=== PATIENT | male | born 1945 | race Caucasian/White ===

== ENCOUNTER 2016-11-16 12:10 | Emergency (ER) | payer OTHER | END 2016-11-16 13:35 | disposition home or self-care (01) | LOC: D.ER 12:10 | DX: S83.92XA Sprain of unspecified site of left knee, initial encounter (principal); W13.3XXA Fall through floor, initial encounter; Y93.89 Activity, other specified; Y92.019 Unspecified place in single-family (private) house as the place of occurrence of the external cause; F17.200 Nicotine dependence, unspecified, uncomplicated ==

== ENCOUNTER 2016-12-12 04:25 | Emergency (ER) | payer OTHER ==
[2012-08-24 14:44] VITALS: BMI 25.8
[~2016-12-12 04:25] MED LIST: CELEXA20 MG PO; COUMADIN5 MG PO; COUMADIN6 MG PO; DESERYL100 MG PO; DULCOLAX10 MG/SUPP RC; FLOMAX0.4 MG; LOVENOX40 MG/0.4 SQ; MIRALAX17 GM PO; NORCO 10/325 TA1 TA1 PO; ONDANSETRON4 MG/2 M3 IV; OXYCODONE HCL10 MG; SENOKOT-S TABLE1 TAB PO; TUMS500 MG PO; UNKOWN; XANAX0.25 MG PO
== END 2016-12-12 06:54 | disposition home or self-care (01) ==
LOC: D.ER 04:25
DX: S32.19XA Other fracture of sacrum, initial encounter for closed fracture (principal); X58.XXXA Exposure to other specified factors, initial encounter; Y93.89 Activity, other specified; Y92.029 Unspecified place in mobile home as the place of occurrence of the external cause

== ENCOUNTER 2017-07-07 11:28 | Emergency (ER) | payer OTHER ==
[2012-08-24 14:44] VITALS: BMI 25.8
[2017-07-07 13:23] LABS: INR 1.07 (0.85-1.17); PROTIME 13.5 SECONDS (11.6-15.0)
[2017-07-07 13:25] LABS: ALBUMIN 3.3 g/dL (3.4-5.0); ALKALINE PHOSPHATASE 74 U/L (46-116); ALT (SGPT) 26 U/L (10-68); CALC OSMOLALITY 279 mosm/kg (275-300); CALCIUM 8.7 mg/dL (8.5-10.1); CARBON DIOXIDE 27.3 mmol/L (21.0-32.0); CHLORIDE - SERUM 105 mmol/L (98-107); CREATININE - SERUM 1.3 mg/dL (0.6-1.3); GLUCOSE 76 mg/dL (74-106); POTASSIUM - SERUM 4.6 mmol/L (3.5-5.1); PROTEIN - SERUM 6.9 g/dL (6.4-8.2); SODIUM 140 mmol/L (136-145); UREA NITROGEN 19 mg/dL (7-18); eGFR NON AFRICAN AMERICAN 58 mL/min (90-120)
[2017-07-07 13:32] LABS: BASOPHILS 1.4 % (0-2); EOSINOPHILS 8.9 % (0-7); HEMATOCRIT 33.2 % (42.0-54.0); HEMOGLOBIN 11.1 g/dL (13.5-17.5); IMMATURE GRANULOCYTES 0.2 % (0-5); LYMPHOCYTES 32.7 % (15-50); MCH 30.3 pg (26.0-34.0); MCHC 33.4 g/dL (31.0-37.0); MCV 90.7 fL (80.0-100.0); MEAN PLATELET VOLUME 9.8 fL (7.4-10.4); MONOCYTES 12.2 % (2-11); NEUTROPHILS 44.6 % (40-80); PLATELET COUNT 246 10x3/uL (130-400); RBC 3.66 10x6/uL (4.20-6.10); RDW 12.8 % (11.5-14.5); WBC 8.5 10x3/uL (4.8-10.8)
[2017-07-07 13:45] LABS: CREATINE KINASE 312 UL (21-232)
[2017-07-07 13:46] LABS: CKMB 6.5 U/L (0.0-3.6)
== END 2017-07-07 13:29 | disposition home or self-care (01) ==
LOC: D.ER 11:28
PROVIDERS: Nurse Practitioner Family
DX: S02.2XXA Fracture of nasal bones, initial encounter for closed fracture (principal); Y04.2XXA Assault by strike against or bumped into by another person, initial encounter; Y93.89 Activity, other specified; Y92.019 Unspecified place in single-family (private) house as the place of occurrence of the external cause; S00.83XA Contusion of other part of head, initial encounter

== ENCOUNTER 2018-01-30 20:35 | Emergency (ER) | payer OTHER, MEDICARE ==
[~2018-01-30] VITALS: Ht 160 cm; Wt 68.2 kg
[2018-01-30 20:59] VITALS: Ht 160 cm; Wt 68.2 kg
[2018-01-30] MEDS ORDERED: MUPIROCIN22 GM TOPICAL (23:20)
[2018-01-30 23:30] VITALS: BP 112/69
== END 2018-01-30 23:30 | disposition home or self-care (01) ==
LOC: D.ER 20:35
DX: S51.812A Laceration without foreign body of left forearm, initial encounter (principal); W18.31XA Fall on same level due to stepping on an object, initial encounter; Y93.89 Activity, other specified; Y92.019 Unspecified place in single-family (private) house as the place of occurrence of the external cause; S50.812A Abrasion of left forearm, initial encounter; F17.200 Nicotine dependence, unspecified, uncomplicated

== ENCOUNTER 2018-02-13 12:02 | Emergency (ER) | payer OTHER ==
[~2018-02-13 12:02] MED LIST changes: +MUPIROCIN22 GM TOPICAL
[2018-02-13 12:36] VITALS: BP 125/70; Ht 160 cm
== END 2018-02-13 14:04 | disposition home or self-care (01) ==
LOC: D.ER 12:02
DX: S51.012D Laceration without foreign body of left elbow, subsequent encounter (principal); X58.XXXD Exposure to other specified factors, subsequent encounter; Z48.02 Encounter for removal of sutures

== ENCOUNTER 2018-07-05 11:20 | Emergency (ER) | payer MEDICARE ==
[2018-07-05 11:51] VITALS: BMI 27.5
[2018-07-05 13:48] VITALS: BP 132/76
== END 2018-07-05 13:49 | disposition home or self-care (01) ==
LOC: D.ER 11:20
DX: M25.551 Pain in right hip (principal); W18.31XA Fall on same level due to stepping on an object, initial encounter; Y93.89 Activity, other specified; Y92.019 Unspecified place in single-family (private) house as the place of occurrence of the external cause

== ENCOUNTER 2018-07-18 10:22 | Emergency (ER) | payer OTHER, MEDICARE ==
[~2018-07-18] VITALS: Ht 160 cm; Wt 72.7 kg
[2018-07-18 10:29] VITALS: Ht 160 cm; Wt 72.7 kg
[2018-07-18] MEDS ORDERED: ZANAFLEX2 M1 PO (11:49)
[2018-07-18 11:56] VITALS: BP 126/70
== END 2018-07-18 11:58 | disposition home or self-care (01) ==
LOC: D.ER 10:22
DX: M54.2 Cervicalgia (principal); V43.52XA Car driver injured in collision with other type car in traffic accident, initial encounter; Y93.89 Activity, other specified; Y92.410 Unspecified street and highway as the place of occurrence of the external cause

== ENCOUNTER 2019-10-15 07:21 | Inpatient (IN) | payer OTHER ==
[~2019-10-15] VITALS: Ht 162.6 cm; Wt 68.5 kg
[~2019-10-15 07:21] MED LIST changes: +ZANAFLEX2 M1 PO
[2019-10-15 08:19] LABS: BILIRUBIN NEGATIVE (NEGATIVE); GLUCOSE NEGATIVE (NEGATIVE); KETONE NEGATIVE (NEGATIVE); NITRITE NEGATIVE (NEGATIVE); UROBILINOGEN NORMAL (NORMAL)
[2019-10-15 08:20] LABS: BACTERIA FEW /hpf (NEGATIVE); EPITHELIAL CELLS 0-5 /hpf (0-5); WHITE CELLS - URINE 0-5 /hpf (NEGATIVE)
[2019-10-15 08:37] LABS: BASOPHILS 0.1 % (0-2); CALC OSMOLALITY 278 mosm/kg (275-300); CALCIUM 8.5 mg/dL (8.5-10.1); CARBON DIOXIDE 32.1 mmol/L (21.0-32.0); CHLORIDE - SERUM 101 mmol/L (98-107); CREATININE - SERUM 1.1 mg/dL (0.6-1.3); EOSINOPHILS 0.9 % (0-7); GLUCOSE 100 mg/dL (74-106); HEMATOCRIT 37.2 % (42.0-54.0); HEMOGLOBIN 12.3 g/dL (13.5-17.5); IMMATURE GRANULOCYTES 0.2 % (0-5); LYMPHOCYTES 8.3 % (15-50); MCH 30.6 pg (26.0-34.0); MCHC 33.1 g/dL (31.0-37.0); MCV 92.5 fL (80.0-100.0); MEAN PLATELET VOLUME 9.1 fL (7.4-10.4); MONOCYTES 4.1 % (2-11); NEUTROPHILS 86.4 % (40-80); PLATELET COUNT 277 10x3/uL (130-400); POTASSIUM - SERUM 4.4 mmol/L (3.5-5.1); RBC 4.02 10x6/uL (4.20-6.10); RDW 13.9 % (11.5-14.5); SODIUM 140 mmol/L (136-145); UREA NITROGEN 12 mg/dL (7-18); WBC 14.8 10x3/uL (4.8-10.8); eGFR NON AFRICAN AMERICAN 70 mL/min (90-120)
[2019-10-15 08:53] LABS: ALBUMIN 3.3 g/dL (3.4-5.0); ALKALINE PHOSPHATASE 96 U/L (30-120); ALT (SGPT) 22 U/L (10-68); CKMB 1.4 U/L (0.0-3.6); CREATINE KINASE 121 UL (21-232); LIPASE 61 U/L (73-393); MAGNESIUM - SERUM 1.9 mg/dL (1.8-2.4); PROTEIN - SERUM 6.8 g/dL (6.4-8.2)
[2019-10-15 08:54] LABS: TROPONIN-I < 0.017 ng/mL (0.000-0.060)
[2019-10-15 09:06] VITALS: BP 143/72
[2019-10-15 13:18] LABS: INR 0.94 (0.85-1.17); PROTIME 12.6 SECONDS (11.6-15.0)
[2019-10-15 18:26] VITALS: BP 162/82
--- NOTE | 2019-10-15 19:19 | NUR ---
RECEIVED CALL FROM PT'S DAUGHTER. UPDATED LIZ THAT THE RESULTS OF PT COVID TEST WAS NEGATIVE. LIZ CAN BE REACHED @ [phone]
--- NOTE | 2019-10-15 19:45 | NUR ---
PATIENT IS SLEEPING IN BED. HE IS ALERT AND ORIENTED. HIS COVID TEST IS NEGATIVE. HE IS ON 2 LITERS NASAL CANNULA. WE WILL CONTINUE TO MONITOR HIS RESPIRATORY STATUS.
[2019-10-15 20:45] VITALS: BP 159/78
[2019-10-16 00:45] VITALS: BP 128/55
--- NOTE | 2019-10-16 03:21 | NUR ---
PATIENT IS SLEEPING IN BED. HE IS ON 2 LITERS NASAL CANNULA. HE IS ON IV FLUIDS. HIS COVID IS NEGATIVE. HE HAS NO COMPLAINTS AT THIS TIME. WE WILL CONTINUE TO MONITOR HIS RESPIRATORY STATUS.
[2019-10-16 04:45] VITALS: BP 133/67
[2019-10-16 06:06] LABS: BASOPHILS 0.2 % (0-2); EOSINOPHILS 1.7 % (0-7); HEMATOCRIT 37.1 % (42.0-54.0); HEMOGLOBIN 12.1 g/dL (13.5-17.5); IMMATURE GRANULOCYTES 0.2 % (0-5); MCHC 32.6 g/dL (31.0-37.0); MCV 92.1 fL (80.0-100.0); MEAN PLATELET VOLUME 8.9 fL (7.4-10.4); MONOCYTES 11.3 % (2-11); NEUTROPHILS 70.6 % (40-80); PLATELET COUNT 243 10x3/uL (130-400); RBC 4.03 10x6/uL (4.20-6.10); RDW 13.9 % (11.5-14.5); WBC 11.6 10x3/uL (4.8-10.8)
[2019-10-16 06:10] LABS: INR 1.12 (0.85-1.17); PROTIME 14.3 SECONDS (11.6-15.0)
[2019-10-16 06:33] LABS: ALBUMIN 2.9 g/dL (3.4-5.0); ALKALINE PHOSPHATASE 82 U/L (30-120); BILIRUBIN - TOTAL 0.49 mg/dL (0.2-1.3); CALC OSMOLALITY 277 mosm/kg (275-300); CALCIUM 8.7 mg/dL (8.5-10.1); CARBON DIOXIDE 32.6 mmol/L (21.0-32.0); CHLORIDE - SERUM 105 mmol/L (98-107); GLUCOSE 92 mg/dL (74-106); PROTEIN - SERUM 6.8 g/dL (6.4-8.2); SODIUM 140 mmol/L (136-145); UREA NITROGEN 10 mg/dL (7-18); eGFR NON AFRICAN AMERICAN 78 mL/min (90-120)
[2019-10-16 06:35] LABS: ALT (SGPT) 16 U/L (10-68); POTASSIUM - SERUM 3.6 mmol/L (3.5-5.1)
[2019-10-16 09:00] VITALS: BP 169/76
[2019-10-16 13:45] VITALS: Ht 162.6 cm; Wt 68.5 kg
[2019-10-16] MEDS ORDERED: BUSPAR5 MG PO (18:04)
[2019-10-16] MEDS ORDERED: EFFEXOR XR75 MG PO (18:07)
[2019-10-16] MEDS ORDERED: COREG6.25 MG PO (18:08)
[2019-10-16] MEDS ORDERED: REMERON15 MG PO (18:09)
[2019-10-16] MEDS ORDERED: LISINOPRIL5 MG PO (18:11)
[2019-10-16] MEDS ORDERED: OMEPRAZOLE20 M1 PO (18:13)
[2019-10-16] MEDS ORDERED: GABAPENTIN300 MG PO (18:14)
[2019-10-16] MEDS ORDERED: ZOCOR20 MG PO (18:16)
--- NOTE | 2019-10-16 19:05 | NUR ---
REPORT RECEIVED, PT CARE ASSUMED. INTRODUCED SELF AND WROTE NAME ON BOARD. PT LYING IN BED, WATCHING TV, AAOX4. DENIES ANY NEEDS AT THIS TIME. BED IN LOWEST, SRX1, CALL LIGHT WITHIN REACH. WILL CTM.
[2019-10-17 05:46] LABS: INR 1.07 (0.85-1.17); PROTIME 13.8 SECONDS (11.6-15.0)
[2019-10-17 09:00] VITALS: BP 150/77
--- NOTE | 2019-10-17 11:39 | NUR ---
RCVD PT FROM [facility] VIA WHEELCHAIR AND HOSPITAL STAFF. RIGHT CHEST PORT PRESENT. V/S STABLE. NO CURRENT S/S OF DISTRESS, DENIES CURRENT NEEDS, WILL CONT TO [place].
[2019-10-17 12:04] VITALS: BP 139/96
[2019-10-17 15:48] VITALS: BP 153/95
[2019-10-17 20:00] VITALS: BP 167/90
[2019-10-18] VITALS: BP 117/80
[2019-10-18 04:00] VITALS: BP 102/67
--- NOTE | 2019-10-18 07:15 | NUR ---
RECEIVE BEDSIDE SHIFT REPORT. RESTING IN BED WITH EYES CLOSED. NO SIGNS OF DISTRESS. WILL CONTINUE PLAN OF CARE AND SAFETY PRECAUTIONS.
[2019-10-18 08:37] VITALS: BP 152/78
[2019-10-18 09:54] LABS: INR 0.93 (0.85-1.17); PROTIME 12.4 SECONDS (11.6-15.0)
[2019-10-18 12:00] VITALS: BP 137/91
--- NOTE | 2019-10-18 15:36 | MORECARE ---
CASE MANAGEMENT DISCHARGE SUMMARY PATIENT: MILADIS DYKES UNIT: [id number] ADM DATE: 10/15/19 AGE: 74 : 46 SEX: M ROOM/BED: D.2235 AUTHOR: CARMEN CEJA PHYSICIAN: REFERRING PHYSICIAN: NARCISO SYKES MD DATE OF SERVICE: 10/18/19 Discharge Plan Patient Name: MILADIS DYKES Facility: [facility]:[place] : 1945 Planned Disposition: Home Anticipated Discharge Date: Discharge Date: Expected LOS: Initial Reviewer: [email or web address] Initial Review Date: 10/18/2019 Generated: 10/18/19 4:36 pm Comments DCP- Discharge Planning Updated by [email or web address]: Beatrice Royal on 10/18/19 2:[address] Patient Name: MILADIS DYKES Admission Status: ER Accout number: [id number] Admission Date: 10-15-2019 : 1945 Admission Diagnosis: Attending: NARCISO SYKES Current LOS: 3 Anticipated DC Date: Planned Disposition: Home Primary Insurance: [employer] Discharge Planning Comments: CM met with patient at bedside after explaining CM role and obtaining verbal consent. CM discussed availability / needs of home health, REHAB and medical equipment. PATIENT DENIES ANY DISCHARGE NEEDS. HE STATES ANTICIPATES DC TO HOME TOMORRW. General Road Foreman: Beatrice Royal DCP- Discharge Planning Updated by [email or web address]: Emiliana Chaudhary on 10/15/19 12:[address] CM CALLED [address] HOTLINE FOR ADMISSION. CM SPOKE WITH LAURA WITH UPDATE. AUTHORIZATION NUMBER #[id number]. DCPIA - Discharge Planning Initial Assessment Updated by [email or web address]: Beatrice Royal on 10/18/19 3:35 pm * Is the patient Alert and Oriented? Yes * PCP ONEL * Pharmacy [facility] * Preadmission Environment Home with Family * ADLs Independent * Equipment None * Community resources currently utilized None * Additional services required to return to the preadmission environment? No * Can the patient safely return to the preadmission environment? Yes * Has this patient been hospitalized within the prior 30 days at any hospital? No Patient Name: MILADIS DYKES Page 30105 at 1536 All edits/amendments must be made on the electronic document DICTATION DATE: 10/18/191535 DOOR TO DOOR LEAD GENERATION: FANNY 10/18/191535 RPT#: [id number] DC DATE: STATUS: ADM IN [facility] [address] [place] [address] END OF REPORT
[2019-10-18 16:00] VITALS: BP 164/94
--- NOTE | 2019-10-18 18:00 | NUR ---
PATIENT COMPLAINS OF NECK PAIN AND HAS NO RELIEF WITH CURRENT PAIN MEDICATIONS. CALLED DR. SYKES AND HE ORDERED TIZANIDINE 4MG PO TID PRN FOR NECK PAIN/MUSCLE SPASMS. WILL CONTINUE TO MONITOR
[2019-10-18 20:55] VITALS: BP 162/89
[2019-10-19 01:48] VITALS: BP 133/82
--- NOTE | 2019-10-19 03:34 | NUR ---
I have reviewed this patient and I concur with the Shift Assessment completed by the Licensed Practical Nurse today this shift.
[2019-10-19 04:30] VITALS: BP 126/75
[2019-10-19 06:15] LABS: BASOPHILS 0.3 % (0-2); EOSINOPHILS 2.8 % (0-7); HEMATOCRIT 32.9 % (42.0-54.0); HEMOGLOBIN 10.7 g/dL (13.5-17.5); IMMATURE GRANULOCYTES 0.2 % (0-5); LYMPHOCYTES 23.2 % (15-50); MCH 29.6 pg (26.0-34.0); MCHC 32.5 g/dL (31.0-37.0); MCV 91.1 fL (80.0-100.0); MEAN PLATELET VOLUME 9.1 fL (7.4-10.4); MONOCYTES 15.1 % (2-11); NEUTROPHILS 58.4 % (40-80); PLATELET COUNT 247 10x3/uL (130-400); RBC 3.61 10x6/uL (4.20-6.10); RDW 13.5 % (11.5-14.5); WBC 8.8 10x3/uL (4.8-10.8)
[2019-10-19 06:23] LABS: INR 1.08 (0.85-1.17)
[2019-10-19 06:34] LABS: CALC OSMOLALITY 274 mosm/kg (275-300); CALCIUM 8.5 mg/dL (8.5-10.1); CHLORIDE - SERUM 104 mmol/L (98-107); CREATININE - SERUM 0.9 mg/dL (0.6-1.3); GLUCOSE 86 mg/dL (74-106); POTASSIUM - SERUM 3.6 mmol/L (3.5-5.1); SODIUM 138 mmol/L (136-145); UREA NITROGEN 13 mg/dL (7-18); eGFR NON AFRICAN AMERICAN 88 mL/min (90-120)
--- NOTE | 2019-10-19 07:05 | NUR ---
WALKNING ROUNDS COMPLETE, PT SITTING UP IN CHAIR, O2 IN USE PER NC, IV INFUSING WITHOUT DIFFICULTY, SITE CLEAR, PT DENIES ANY NEEDS AT THIS TIME, PT HAS CHRONIC PAIN IN BACK AND NECK, CALL LIGHT IN REACH, WILL CONTINUE TO MONITOR
[2019-10-19 08:09] VITALS: BP 172/96
--- NOTE | 2019-10-19 08:10 | NUR ---
GAVE PT MORNING MEDS, PT GOT SCHEDULED PAIN MEDS, NO OTHER NEEDS VOICED, WILL MONITOR
--- NOTE | 2019-10-19 11:12 | NUR ---
PT SITTING UP IN CHAIR, HUNG ANTIBIOTIC, SITE CLEAR, PT DENIES NEEDS AT THIS TIME, WILL MONITOR
--- NOTE | 2019-10-19 12:37 | NUR ---
GAVE PT NORCO 10MG PO FOR PAIN, RATES PAIN 7/10 IN BACK AND NECK, NO OTHER NEEDS VOICED
[2019-10-19 12:54] VITALS: BP 168/88
--- NOTE | 2019-10-19 13:31 | NUR ---
PT RATES PAIN 4/10, VOICES PAIN MEDS HELPED ALOT, WILL MONITOR
[2019-10-19] MEDS ORDERED: VIBRAMYCIN 100100 MG PO (13:51)
--- NOTE | 2019-10-19 15:41 | MORECARE ---
CASE MANAGEMENT DISCHARGE SUMMARY PATIENT: MILADIS DYKES UNIT: [id number] ADM DATE: 10/15/19 AGE: 74 : 46 SEX: M ROOM/BED: D.2235 AUTHOR: MARCIAL,DOC PHYSICIAN: REFERRING PHYSICIAN: NARCISO SYKES MD DATE OF SERVICE: 10/19/19 Discharge Plan Patient Name: MILADIS DYKES Facility: [facility]:[place] : 1945 Planned Disposition: Home Anticipated Discharge Date: Discharge Date: Expected LOS: Initial Reviewer: [email or web address] Initial Review Date: 10/18/2019 Generated: 10/19/19 4:41 pm Comments DCP- Discharge Planning Updated by [email or web address]: Astrid Coleman on 10/19/19 2:[address] SPOKE WITH YVONNE WITH [facility] AND LET HER KNOW THAT HE WAS BEING DISCHARGE NO NEEDS DCP- Discharge Planning Updated by [email or web address]: Beatrice Royal on 10/18/19 2:[address] Patient Name: MILADIS DYKES Admission Status: ER Accout number: [id number] Admission Date: 10-15-2019 : 1945 Admission Diagnosis: Attending: NARCISO SYKES Current LOS: 3 Anticipated DC Date: Planned Disposition: Home Primary Insurance: [employer] Discharge Planning Comments: CM met with patient at bedside after explaining CM role and obtaining verbal consent. CM discussed availability / needs of home health, REHAB and medical equipment. PATIENT DENIES ANY DISCHARGE NEEDS. HE STATES ANTICIPATES DC TO HOME TOMORRW. Diesel Truck Mechanic: Beatrice Royal DCP- Discharge Planning Updated by [email or web address]: Emiliana Chaudhary on 10/15/19 12:[address] CM CALLED [place] [facility] HOTLINE FOR ADMISSION. CM SPOKE WITH LAURA WITH UPDATE. AUTHORIZATION NUMBER #[id number]. DCPIA - Discharge Planning Initial Assessment Updated by [email or web address]: Beatrice Royal on 10/18/19 3:35 pm * Is the patient Alert and Oriented? Yes * PCP ONEL * Pharmacy [facility] * Preadmission Environment Home with Family * ADLs Independent * Equipment None * Community resources currently utilized None * Additional services required to return to the preadmission environment? No * Can the patient safely return to the preadmission environment? Yes * Has this patient been hospitalized within the prior 30 days at any hospital? No Last DP export: 10/18/19 2:37 p Patient Name: MILADIS DYKES Page 14910 at 1541 All edits/amendments must be made on the electronic document DICTATION DATE: 10/19/19 154 MANAGER COMPLETIONS: FANNY 10/19/19 1541 RPT#: [id number] DC DATE: STATUS: ADM IN [facility] [address] [place] [address] END OF REPORT
--- NOTE | 2019-10-19 16:48 | NUR ---
WENT OVER DISCHARGE INSTRUCTIONS WITH PT, VERBALIZED THAT ANTIBIOTIC WAS CALLED IN, HEPARINIZED PORT, REMOVED BERGER NEEDLE INTACT, ALL PERSONAL BELONGINGS RETURNED,
--- NOTE | 2019-10-21 09:02 | MORECARE ---
CASE MANAGEMENT DISCHARGE SUMMARY PATIENT: MILADIS DYKES UNIT: [id number] ADM DATE: 10/15/19 AGE: 74 : 46 SEX: M ROOM/BED: D.2235 AUTHOR: CARMEN CEJA PHYSICIAN: REFERRING PHYSICIAN: NARCISO SYKES MD DATE OF SERVICE: 10/21/19 Discharge Plan Patient Name: MILADIS DYKES Facility: [facility]:[place] : 1945 Planned Disposition: Home Anticipated Discharge Date: Discharge Date: 10/19/2019 Expected LOS: Initial Reviewer: [email or web address] Initial Review Date: 10/18/2019 Generated: 10/21/19 10:01 am Comments DCP- Discharge Planning Updated by [email or web address]: Astrid Coleman on 10/19/19 2:[address] SPOKE WITH YVONNE WITH [facility] AND LET HER KNOW THAT HE WAS BEING DISCHARGE NO NEEDS DCP- Discharge Planning Updated by [email or web address]: Beatrice Royal on 10/18/19 2:[address] Patient Name: MILADIS DYKES Admission Status: ER Accout number: [id number] Admission Date: 10-15-2019 : 1945 Admission Diagnosis: Attending: ANRCISO SYKES Current LOS: 3 Anticipated DC Date: Planned Disposition: Home Primary Insurance: [employer] Discharge Planning Comments: CM met with patient at bedside after explaining CM role and obtaining verbal consent. CM discussed availability / needs of home health, REHAB and medical equipment. PATIENT DENIES ANY DISCHARGE NEEDS. HE STATES ANTICIPATES DC TO HOME TOMORRW. Regional Driver: Beatrice Royal DCP- Discharge Planning Updated by [email or web address]: Emiliana Chaudhary on 10/15/19 12:[address] CM CALLED [place] [facility] HOTLINE FOR ADMISSION. CM SPOKE WITH LAURA WITH UPDATE. AUTHORIZATION NUMBER #[id number]. DCPIA - Discharge Planning Initial Assessment Updated by [email or web address]: Beatrice Royal on 10/18/19 3:35 pm * Is the patient Alert and Oriented? Yes * PCP ONEL * [facility] * Preadmission Environment Home with Family * ADLs Independent * Equipment None * Community resources currently utilized None * Additional services required to return to the preadmission environment? No * Can the patient safely return to the preadmission environment? Yes * Has this patient been hospitalized within the prior 30 days at any hospital? No Last DP export: 10/19/19 2:41 p Patient Name: MILADIS DYKES Page 38335 at 0902 All edits/amendments must be made on the electronic document DICTATION DATE: 10/21/19901 CASE MONITOR: FANNY 10/21/19901 RPT#: [id number] DC DATE:10/19/19 STATUS: DIS IN [facility] [address] [place] [address] END OF REPORT
== END 2019-10-19 17:13 | disposition home or self-care (01) | DRG 195 ==
LOC: D.ER 07:21 → D.MS 10:31 → D.M2 10:31 → D.MS 10-17 11:35
PROVIDERS: Family Medicine; ADMIT Family Medicine; ATTEND Family Medicine
DX: J18.9 Pneumonia, unspecified organism (principal); R09.02 Hypoxemia; I10 Essential (primary) hypertension

== ENCOUNTER 2020-07-20 05:12 | Emergency (ER) | payer OTHER ==
[~2020-07-20] VITALS: Ht 162.6 cm; Wt 75.0 kg
[~2020-07-20 05:12] MED LIST changes: +BACTRIM DS TAB1 EAC1 PO; +BUSPAR5 MG PO; +COREG12.5 MG PO; +COREG6.25 MG PO; +EFFEXOR XR75 MG PO; +GABAPENTIN300 MG PO; +LISINOPRIL10 MG PO; +LISINOPRIL5 MG PO; +OMEPRAZOLE20 M1 PO; +REMERON15 MG PO; +VIBRAMYCIN 100100 MG PO; +ZOCOR20 MG PO
[2020-07-20 05:13] VITALS: BP 150/68; Ht 162.6 cm; Wt 75.0 kg
[2020-07-20 05:38] LABS: HEMOGLOBIN 11.2 g/dL (13.5-17.5); MCH 30.1 pg (26.0-34.0); MCV 88.4 fL (80.0-100.0); MEAN PLATELET VOLUME 7.4 fL (7.4-10.4); RBC 3.73 10x6/uL (4.20-6.10); RDW 13.6 % (11.5-14.5); WBC 5.9 10x3/uL (4.8-10.8)
[2020-07-20 05:56] LABS: CALC OSMOLALITY 268 mosm/kg (275-300); CALCIUM 8.6 mg/dL (8.5-10.1); CARBON DIOXIDE 27.6 mmol/L (21.0-32.0); CHLORIDE - SERUM 97 mmol/L (98-107); CREATININE - SERUM 1.2 mg/dL (0.6-1.3); POTASSIUM - SERUM 4.6 mmol/L (3.5-5.1); SODIUM 134 mmol/L (136-145); UREA NITROGEN 22 mg/dL (7-18); eGFR NON AFRICAN AMERICAN 63 mL/min (90-120)
[2020-07-20 06:00] LABS: GLUCOSE 69 mg/dL (74-106)
[2020-07-20 06:04] LABS: PLATELET COUNT 171 10x3/uL (130-400)
[2020-07-20 06:10] LABS: ALBUMIN 3.5 g/dL (3.4-5.0); ALKALINE PHOSPHATASE 74 U/L (30-120); ALT (SGPT) 28 U/L (10-68); BILIRUBIN - TOTAL 0.27 mg/dL (0.2-1.3); PRO BNP 704 pg/mL (0-125); PROTEIN - SERUM 7.1 g/dL (6.4-8.2)
[2020-07-20 06:12] LABS: TROPONIN-I < 0.017 ng/mL (0.000-0.060)
[2020-07-20] MEDS ORDERED: AUGMENTIN 875-11 TAB PO (06:15)
[2020-07-20] MEDS ORDERED: DOXYCYCLINE HY100 M2 PO (06:15)
[2020-07-20 07:15] LABS: LYMPHOCYTES 15 % (15-50); MONOCYTES 3 % (2-11); NEUTROPHILS 79 % (40-80); PLATELET ESTIMATE NORMAL
== END 2020-07-20 07:25 | disposition left against medical advice (07) ==
LOC: D.ER 05:12
PROVIDERS: Student in an Organized Health Care Education/Training Program
DX: J18.9 Pneumonia, unspecified organism (principal); J96.91 Respiratory failure, unspecified with hypoxia; F14.90 Cocaine use, unspecified, uncomplicated; I11.0 Hypertensive heart disease with heart failure; I50.9 Heart failure, unspecified; Z72.0 Tobacco use